=== PATIENT | female | born 1995 | race Caucasian/White ===

== ENCOUNTER 2020-12-22 14:43 | Outpatient (CLI) | payer OTHER ==
[2020-12-23] MEDS ORDERED: PRENATAL TABLE1 EAC1 PO (21:59)
== END 2020-12-23 10:22 | disposition home or self-care (01) ==
LOC: OBS/DEL 14:43
PROVIDERS: ATTEND Obstetrics & Gynecology
DX: O26.892 Other specified pregnancy related conditions, second trimester (principal); R10.2 Pelvic and perineal pain; Z3A.23 23 weeks gestation of pregnancy

== ENCOUNTER 2020-12-23 20:13 | Outpatient (CLI) | payer OTHER ==
[2020-12-23] MEDS ORDERED: PRENATAL TABLE1 EAC1 PO (21:59)
== END 2020-12-24 18:28 | disposition home or self-care (01) ==
LOC: OBS/DEL 20:13
PROVIDERS: ATTEND Obstetrics & Gynecology
DX: O26.842 Uterine size-date discrepancy, second trimester (principal); R10.2 Pelvic and perineal pain; O26.852 Spotting complicating pregnancy, second trimester; Z20.822 Contact with and (suspected) exposure to COVID-19

== ENCOUNTER 2021-02-07 02:08 | Emergency (ER) | payer OTHER ==
[~2021-02-07] VITALS: Ht 154.9 cm; Wt 83.5 kg
[~2021-02-07 02:08] MED LIST: PRENATAL TABLE1 EAC1 PO
[2021-02-07] MEDS ORDERED: MELATONIN5 M1 PO (05:53)
[2021-02-07] MEDS ORDERED: ACETAMINOPHEN650 M2 PO (05:53)
[2021-02-07] MEDS ORDERED: AZITHROMYCIN250 MG PO (05:53)
[2021-02-07] MEDS ORDERED: MUCINEX DM ER1 EACH PO (05:53)
== END 2021-02-07 06:10 | disposition home or self-care (01) ==
LOC: ER 02:08
DX: U07.1 COVID-19 (principal); B96.0 Mycoplasma pneumoniae [M. pneumoniae] as the cause of diseases classified elsewhere; Z3A.29 29 weeks gestation of pregnancy; O99.810 Abnormal glucose complicating pregnancy

== ENCOUNTER 2021-03-18 07:34 | Outpatient (CLI) | payer OTHER ==
[~2021-03-18 07:34] MED LIST changes: +ACETAMINOPHEN650 M2 PO; +AZITHROMYCIN250 MG PO; +MELATONIN5 M1 PO; +MUCINEX DM ER1 EACH PO
== END 2021-03-18 17:30 | disposition home or self-care (01) ==
LOC: OBS/DEL 07:34
PROVIDERS: ATTEND Obstetrics & Gynecology
DX: O26.893 Other specified pregnancy related conditions, third trimester (principal); R10.2 Pelvic and perineal pain; Z3A.35 35 weeks gestation of pregnancy

== ENCOUNTER 2021-04-03 14:15 | Inpatient (IN) | payer OTHER ==
[~2021-04-03] VITALS: Ht 157.5 cm; Wt 3.6 kg
== END 2021-04-17 13:15 | disposition home or self-care (01) | DRG 788 ==
LOC: LDR 04-15 05:10 → OB/GYN 04-15 19:12 → LDR 04-19 14:15
PROVIDERS: ADMIT Obstetrics & Gynecology; ATTEND Obstetrics & Gynecology
PROC: 4A1HXCZ Monitoring of Products of Conception, Cardiac Rate, External Approach (ICD-10-PCS; 2021-04-15)
PROC: 10D00Z1 Extraction of Products of Conception, Low, Open Approach (ICD-10-PCS; principal; 2021-04-15 17:15)
DX: O62.1 Secondary uterine inertia (principal); Z3A.39 39 weeks gestation of pregnancy; Z37.0 Single live birth; Z20.822 Contact with and (suspected) exposure to COVID-19